=== PATIENT | female | born 1980 | race Caucasian/White ===

== ENCOUNTER 2023-03-09 08:53 | Outpatient (OUT) | payer OTHER, SELFPAY ==
[2023-03-09 09:22] LABS: Basophils Percent Auto 0.3 % (0.2-2.0); Eosinophils Absolute Auto 0.2 10^3/uL (0.0-0.7); Eosinophils Percent Auto 2.3 % (0.9-7.0); Hemoglobin 14.1 g/dL (12.0-16.0); Immature Granulocytes Abs Auto 0.03 10^3/uL (0.00-0.03); Immature Granulocytes Pct Auto 0.4 % (0.0-0.5); Lymphocytes Absolute Auto 1.3 10^3/uL (1.2-3.8); Mean Corpuscular HGB Conc 34.4 g/dL (29.9-35.2); Mean Corpuscular Hemoglobin 29.9 pg (26.7-34.0); Mean Platelet Volume 9.4 fL (9.5-13.5); Monocytes Absolute Auto 0.5 10^3/uL (0.3-0.8); Neutrophils Absolute Auto 5.2 10^3/uL (1.4-6.5); Platelet Count 227 10^3/uL (150-450); Red Blood Count 4.71 10^6/uL (4.20-5.40); White Blood Count 7.3 10^3/uL (4.0-11.0)
[2023-03-09 09:35] LABS: Anion Gap 8.8; BUN Creatinine Ratio 11.4; Calcium 9.2 mg/dL (8.5-10.1); Carbon Dioxide 30.1 mmol/L (21.0-32.0); Chloride 102 mmol/L (98-107); Chol HDL Ratio 5.1; Cholesterol 197 mg/dL (<=200); Estimated GFR (African America >60 (>=60); Estimated GFR (Non-African Ame >60 (>=60); Glucose 85 mg/dL (74-106); HDL Cholesterol 39 mg/dL (40-60); Potassium 3.9 mmol/L (3.5-5.1); Sodium 137 mmol/L (136-145); Triglycerides 219 mg/dL (<=150); VLDL CHOLESTEROL 43.8 mg/dL
== END 2023-03-09 08:54 | disposition home or self-care (01) ==
LOC: LAB 08:56
PROVIDERS: PCP Family Medicine; Visit Provider Family Medicine
DX: Z00.00 Encounter for general adult medical examination without abnormal findings (principal)
CPT/HCPCS: 36415; 80048; 80061; 85025

== ENCOUNTER 2024-03-20 07:40 | Outpatient (OUT) | payer OTHER, SELFPAY ==
[2024-03-20 08:02] LABS: Basophils Percent Auto 0.2 % (0.2-2.0); Eosinophils Absolute Auto 0.2 10^3/uL (0.0-0.7); Eosinophils Percent Auto 3.3 % (0.9-7.0); Hematocrit 37.9 % (36.0-48.0); Hemoglobin 13.3 g/dL (12.0-16.0); Immature Granulocytes Abs Auto 0.01 10^3/uL (0.00-0.03); Immature Granulocytes Pct Auto 0.2 % (0.0-0.5); Lymphocytes Absolute Auto 1.5 10^3/uL (1.2-3.8); Lymphocytes Percent Auto 26.4 % (20.5-60.0); Mean Corpuscular HGB Conc 35.1 g/dL (29.9-35.2); Mean Corpuscular Hemoglobin 30.7 pg (26.7-34.0); Mean Corpuscular Volume 87.5 fL (81.0-99.0); Mean Platelet Volume 9.3 fL (9.5-13.5); Monocytes Absolute Auto 0.4 10^3/uL (0.3-0.8); Monocytes Percent Auto 6.9 % (1.7-12.0); Neutrophils Absolute Auto 3.5 10^3/uL (1.4-6.5); Platelet Count 212 10^3/uL (150-450); Red Blood Count 4.33 10^6/uL (4.20-5.40); Red Cell Distribution Width 11.9 % (11.0-15.0); White Blood Count 5.5 10^3/uL (4.0-11.0)
[2024-03-20 08:54] LABS: Anion Gap 10.1; BUN Creatinine Ratio 11.2; Carbon Dioxide 29.5 mmol/L (21.0-32.0); Chloride 103 mmol/L (98-107); Chol HDL Ratio 4.3; Cholesterol 194 mg/dL (<=200); Estimated GFR (African America >60 (>=60); Estimated GFR (Non-African Ame >60 (>=60); Glucose 89 mg/dL (74-106); HDL Cholesterol 45 mg/dL (40-60); Potassium 3.6 mmol/L (3.5-5.1); Sodium 139 mmol/L (136-145); Triglycerides 151 mg/dL (<=150); VLDL CHOLESTEROL 30.2 mg/dL
== END 2024-03-20 07:41 | disposition home or self-care (01) ==
PROVIDERS: PCP Family Medicine; Visit Provider Family Medicine
DX: Z00.00 Encounter for general adult medical examination without abnormal findings (principal)
CPT/HCPCS: 36415; 80048; 80061; 85025

== ENCOUNTER 2025-03-13 07:50 | Outpatient (OUT) | payer OTHER, SELFPAY ==
--- OUTSIDE RECORDS SUMMARY | 2025-03-13 07:54 | XMS_ITS | CCD ---
Author Organization [facility] Care Team Providers Care Veneer Drier Feeder Name Role Phone DR MELINDA FREEDMAN Admitting Unavailable CHRIS, DR MELINDA Salvador Attending Unavailable CHRIS, DR MELINDA Salvador Consulting Unavailable CHRIS, DR MELINDA Salvador Primary Care Unavailable CHRIS, DR MELINDA Salvador Admitting Unavailable CHRIS, DR MELINDA Salvador Attending Unavailable CHRIS, DR MELINDA Salvador Consulting Unavailable Melinda Freedman Melinda Freedman Attending Unavailable Melinda Freedman Primary Care Unavailable Melinda Freedman Admitting Unavailable MD Melinda Freedman Primary Care Provider MD Melinda Freedman Attending Provider Melinda Freedman MD Primary Care Provider Melinda Freedman MD Attending Provider Allergies Allergy Classification Reported Allergen(s) Allergy Type Date of Onset Reaction(s) Facility (5 sources) Amoxicillin Drug Allergy 03-04-20 24 [facility] (2 sources) Pseudoephedrine Drug Allergy 07-17-19 14 Unknown [facility] Other (3 sources) 12 Hour Decongestant Allergy to substance 03-04-20 24 [facility] Comment on above: Onset Date: 07/17/19 14 Medications Completed/Discontinued Medications Medication Drug Class(es) Dates Sig (Normalized) Sig (Original) Brompheniramine / Pseudoephedrine (1 source) alpha-Adrenergic Agonist Start: 12-03-2016 take 10 mL by mouth every six hours as needed Bromfed DM 30-2-10 MG/5ML 10 ml as needed Orally every 6 hrs Nov, Not-Taking clarithromycin 500 mg oral tablet (1 source) Macrolide Antimicrobial Start: 07-09-2016 take 1 tablet by mouth every twelve hours Biaxin 500 MG 1 tablet Orally every 12 hrs for 10 day(s) Jun, Not-Taking fluticasone propionate 0.05 mg/actuat metered dose nasal spray (1 source) Corticosteroid Start: 12-03-2016 take 1 spray(s) nasal route once daily Fluticasone Propionate 50 MCG/ACT 1 spray in each nostril Nasally Once a day for 21 days Nov, Not-Taking sulfamethoxazole 800 mg / trimethoprim 160 mg oral tablet (1 source) Dihydrofolate Reductase Inhibitor Antibacterial, Sulfonamide Antimicrobial Start: 12-03-2016 take 1 tablet by mouth every twelve hours Bactrim DS 800-160 MG 1 tablet Orally Twice a day for 10 day(s) Nov, Not-Taking Problems Problem Classification Problem Date Documented Date Episodic/Chronic Menopausal disorders (2 sources) Perimenopausal state; Translations: [Menopausal and female climacteric states] 03-10-2025 Chronic Other lower respiratory disease (2 sources) Rib pain; Translations: [Pleurodynia] 03-10-2025 Episodic Other nutritional; endocrine; and metabolic disorders (2 sources) Obese class II; Translations: [Body mass index (BMI) 35.0-35.9, adult] Chronic Other screening for suspected conditions (not mental disorders or infectious disease) (7 sources) Patient encounter status; Translations: [Encounter for screening mammogram for malignant neoplasm of breast] Onset: 03-27-2024 03-04-2024 Episodic Results Test Name Value Interpretation Reference Range Facility MM screening mammo BI w/CADo n 03-27-2024 MM screening mammo BI w/CAD [facility] [place] [address] Mammography Report Signed Patient: Ana Luisa Gottlieb MR#: [id number] : 1980 Acct:[id number] Age/Sex: 43 / F ADM Date: 03/27/24 Loc: [place] Room: Type: [facility] Attending Dr: Melinda Freedman MD Copies to: Melinda Freedman MD Ordering Provider: Melinda Freedman MD Date of Service: 03/27/24 MM/MM screening mammo BI w/CAD: Z12.31 - Encounter for screening mammogram for malignant ... CLINICAL DATA: Screening for malignancy. BILATERAL SCREENING MAMMOGRAMS - FULL FIELD DIGITAL WITH TOMOSYNTHESIS AND CAD Tomosynthesis craniocaudal and mediolateral oblique views of both breasts were obtained using low- dose digital technique. Comparison is made to prior studies from 05/14/2016. This examination was reviewed with the aid of CAD. There are scattered fibroglandular densities. Benign-appearing lymph nodes are noted along the chest wall. There are a few punctate benign-appearing calcifications. There are no dominant masses, typically malignant calcifications or architectural distortion. There has been no significant interval change. MM/MM screening mammo BI w/CAD IMPRESSION: NO MAMMOGRAPHIC EVIDENCE OF MALIGNANCY. ROUTINE FOLLOW-UP IS RECOMMENDED IN ONE YEAR. RESULT CODE: 2 Benign Findings(s) DENSITY CODE: 2 (approximately 25-50% glandular) FOLLOW UP: 1YR The false-negative rate of mammography is approximately 10-percent. Management of a palpable abnormality must be based on clinical grounds. Patient was entered into a reminder system with a target due date for the next mammogram. Impression dictated by: Allen Gray M.D.03/27/2024 4:01 PM Dictation Location: [facility] Transcribed By: [facility] 03/27/24 1601 Dictated By: Allen Gray II, MD 03/27/24 1557 Signed By: 03/27/24 1601 Normal [facility] Basophils Auto (Bld) [#/Vol] on 03-20-2024 Basophils (Bld) [#/Vol] 0.0 10 3/uL 0.0-0.1 [facility] Basophils/100 WBC Auto (Bld) on 03-20-2024 Basophils/100 WBC (Bld) 0.2 % 0.2-2.0 [facility] Cholesterol in LDL Calc [Mas s/Vol]on 03-20-2024 Cholesterol in LDL [Mass/Vol] 119.0 mg/dL [facility] Comment on above: <100 mg/dl [id number] 0-129 mg/dl NEAR OR ABOVE [id number] mg/dl BORDERLINE [id number] mg/dl HIGH>190 mg/dl VERY HIGH Cholesterol in VLDL Calc [Ma ss/Vol]on 03-20-2024 Cholesterol in VLDL [Mass/Vol] 30.2 mg/dL [facility] Eosinophils/100 WBC Auto (Bl d)on 03-20-2024 Eosinophils/100 WBC (Bld) 3.3 % 0.9-7.0 [facility] Erythrocyte distribution wid th Auto (RBC) [Ratio]on 03-20-2024 Erythrocyte distribution width (RBC) [Ratio] 11.9 % 11.0-15.0 [facility] Estimated glomerular filtrat ion rate (GFR) non- Americanon 03-20-2024 GFR/1.73 sq M.predicted among non-blacks MDRD (S/P/Bld) [Vol rate/Area] mL/min/{1.73_m2} >=60 [facility] Hematocrit Auto (Bld) [Volum e fraction]on 03-20-2024 Hematocrit (Bld) [Volume fraction] 37.9 % 36.0-48.0 [facility] Hemoglobin [Mass/volume] in Bloodon 03-20-2024 Hemoglobin (Bld) [Mass/Vol] 13.3 g/dL 12.0-16.0 [facility] Laboratory - Chemistry and C hemistry - challengeon 03-20-2024 Calcium [Mass/Vol] 9.0 mg/dL 8.5-10.1 [facility] Chloride [Moles/Vol] 103 mmol/L 98-107 [facility] Cholesterol [Mass/Vol] 194 mg/dL <=200 [facility] Cholesterol in HDL [Mass/Vol] 45 mg/dL 40-60 [facility] Comment on above: > or =60 mg/dl - LOW CARDIOVASCULAR RISK<40 mg/dl - HIGH CARDIOVASCULAR RISK CO2 [Moles/Vol] 29.5 mmol/L 21.0-32.0 [facility] Creatinine [Mass/Vol] 0.80 mg/dL 0.55-1.02 [facility] GFR/1.73 sq M.predicted MDRD (S/P/Bld) [Vol rate/Area] mL/min/{1.73_m2} >=60 [facility] Glucose [Mass/Vol] 89 mg/dL 74-106 [facility] Potassium [Moles/Vol] 3.6 mmol/L 3.5-5.1 [facility] Sodium [Moles/Vol] 139 mmol/L 136-145 [facility] Triglyceride [Mass/Vol] 151 mg/dL High <=150 [facility] Urea nitrogen [Mass/Vol] 9.0 mg/dL 7.0-18.0 [facility] Urea nitrogen/Creatinine [Mass ratio] 11.2 mg/mg [facility] - Hematology and Cell countson 03-20-2024 Immature granulocytes/100 WBC (Bld) 0.2 % 0.0-0.5 [facility] Leukocytes [#/volume] correc jacinto for nucleated erythrocytes in Blood by Automated counon 03-20-2024 WBC corrected for nucl RBC Auto (Bld) [#/Vol] 5.5 10 3/uL 4.0-11.0 [facility] Lymphocytes Auto (Bld) [#/Vo l]on 03-20-2024 Lymphocytes (Bld) [#/Vol] 1.5 10 3/uL 1.2-3.8 [facility] Lymphocytes/100 WBC Auto (Bl d)on 03-20-2024 Lymphocytes/100 WBC (Bld) 26.4 % 20.5-60.0 [facility] MCH Auto (RBC) [Entitic mass ]on 03-20-2024 MCH (RBC) [Entitic mass] 30.7 pg 26.7-34.0 [facility] MCHC Auto (RBC) [Mass/Vol]on 03-20-2024 MCHC (RBC) [Mass/Vol] 35.1 g/dL 29.9-35.2 [facility] MCV Auto (RBC) [Entitic vol] on 03-20-2024 MCV (RBC) [Entitic vol] 87.5 fL 81.0-99.0 [facility] Monocytes Auto (Bld) [#/Vol] on 03-20-2024 Monocytes (Bld) [#/Vol] 0.4 10 3/uL 0.3-0.8 [facility] Monocytes/100 WBC Auto (Bld) on 03-20-2024 Monocytes/100 WBC (Bld) 6.9 % 1.7-12.0 [facility] Neutrophils Auto (Bld) [#/Vo l]on 03-20-2024 Neutrophils (Bld) [#/Vol] 3.5 10 3/uL 1.4-6.5 [facility] Neutrophils/100 WBC Auto (Bl d)on 03-20-2024 Neutrophils/100 WBC (Bld) 63.0 % 43.0-75.0 [facility] No Panel Informationon 03-20 Eosinophils # (Auto) 0.2 10 3/uL 0.0-0.7 [facility] Immature Granulocyte # (Auto) 0.01 10 3/uL 0.00-0.03 [facility] Platelet mean volume Auto (B ld) [Entitic vol]on 03-20-2024 Platelet mean volume (Bld) [Entitic vol] 9.3 fL Low 9.5-13.5 [facility] Platelets Auto (Bld) [#/Vol] on 03-20-2024 Platelets (Bld) [#/Vol] 212 10 3/uL 150-450 [facility] RBC Auto (Bld) [#/Vol]on RBC (Bld) [#/Vol] 4.33 10 6/uL 4.20-5.40 [facility] Serum or plasma anion gap de terminationon 03-20-2024 Anion gap [Moles/Vol] 10.1 mmol/L [facility] Serum or plasma total choles terol/high density lipoprotein (HDL) cholesterol mass jerry 03-20-2024 Cholesterol.total/Cho lesterol in HDL [Mass ratio] 4.3 {ratio} [facility] Comment on above: 3.3 - 4.4 LOW RISK4. 4 - 7.1 AVERAGE RISK7.1 - 11.0 MODERATE RISK>11.0 HIGH RISK LIPID PROFILEon 02-17-2022 CHOL-HDL RATIO NORM SEE BELOW Normal [facility] Comment on above: Result Comment: 3.3 - 4.4 LOW RISK 4.4 - 7.1 AVERAGE RISK 7.1 - 11.0 MODERATE RISK >11.0 HIGH RISK Performed By: #### L IPID, TSH, BMP #### [facility] [address] [address] [address] Ruby Anthony Cholesterol [Mass/Vol] 194 mg/dL Normal <=200 [facility] Comment on above: Performed By: #### L IPID, TSH, BMP #### [facility] [address] [address] [address] Ruby Anthony Cholesterol in HDL [Mass/Vol] 44 mg/dL Normal 40-60 [facility] Comment on above: Performed By: #### L IPID, TSH, BMP #### [facility] [address] [address] [address] Ruby Anthony Cholesterol in LDL [Mass/Vol] 119.8 mg/dL Normal [facility] Comment on above: Performed By: #### L IPID, TSH, BMP #### [facility] [address] [address] [address] Ruby Anthony Cholesterol.total/Cho lesterol in HDL [Mass ratio] 4.4 {ratio} Normal [facility] Comment on above: Performed By: #### L IPID, TSH, BMP #### [facility] [address] [address] [address] Ruby Anthony HDL NORMAL > or = 60 mg/dl - LOW CARDIOVASCULAR RISK <40 mg/dl - HIGH CARDIOVASCULAR RISK Normal [facility] Comment on above: Performed By: #### L IPID, TSH, BMP #### [facility] [address] [address] [address] Ruby Anthony LDL CALC NORMAL SEE BELOW Normal [facility] Comment on above: Result Comment: <100 mg/dl OPTIMAL 100 - 129 mg/dl NEAR OR ABOVE OPTIMAL 130 - 159 mg/dl BORDERLINE HIGH 160 - 189 mg/dl HIGH >190 mg/dl VERY HIGH Performed By: #### L IPID, TSH, BMP #### [facility] [address] [address] [address] Ruby Anthony Triglyceride [Mass/Vol] 151 mg/dL Critically high <=150 [facility] Comment on above: Performed By: #### L IPID, TSH, BMP #### [facility] [address] [address] [address] Ruby Anthony VLDL CALC 30.2 mg/dL Normal [facility] Comment on above: Performed By: #### L IPID, TSH, BMP #### [facility] [address] [place] [address] Dr. Ruby Anthony PROF CHEM 8 (BAS METB)on Anion gap [Moles/Vol] 9.8 mmol/L Normal [facility] Comment on above: Performed By: #### L IPID, TSH, BMP #### [facility] [address] [place] [address] Dr. Ruby Anthony Calcium [Mass/Vol] 8.5 mg/dL Normal 8.5-10.1 [facility] Comment on above: Performed By: #### L IPID, TSH, BMP #### [facility] [address] [place] [address] Dr. Ruby Anthony Chloride [Moles/Vol] 102 mmol/L Normal 98-107 [facility] Comment on above: Performed By: #### L IPID, TSH, BMP #### [facility] [address] [place] [address] Dr. Ruby Anthony CO2 [Moles/Vol] 30.9 mmol/L Normal 21.0-32.0 [facility] Comment on above: Performed By: #### L IPID, TSH, BMP #### [facility] [address] [place] [address] Dr. Ruby Anthony Creatinine [Mass/Vol] 0.77 mg/dL Normal 0.55-1.02 [facility] Comment on above: Performed By: #### L IPID, TSH, BMP #### [facility] [address] [place] [address] Dr. Ruby Anthony EGFR-AF SLOVAK >60 Normal >=60 [facility] Comment on above: Performed By: #### L IPID, TSH, BMP #### [facility] [address] [place] [address] Dr. Ruby Anthony EGFR-NON AF SLOVAK >60 Normal >=60 [facility] Comment on above: Performed By: #### L IPID, TSH, BMP #### [facility] [address] [place] [address] Dr. Ruby Anthony Glucose [Mass/Vol] 88 mg/dL Normal 74-106 [facility] Comment on above: Performed By: #### L IPID, TSH, BMP #### [facility] [address] [address] [address] Ruby Anthony Potassium [Moles/Vol] 3.7 mmol/L Normal 3.5-5.1 [facility] Comment on above: Performed By: #### L IPID, TSH, BMP #### [facility] [address] [address] [address] Ruby Anthony Sodium [Moles/Vol] 139 mmol/L Normal 136-145 [facility] Comment on above: Performed By: #### L IPID, TSH, BMP #### [facility] [address] [place] [address] Dr. Ruby Anthony Urea nitrogen [Mass/Vol] 9.0 mg/dL Normal 7.0-18.0 [facility] Comment on above: Performed By: #### L IPID, TSH, BMP #### [facility] [address] [place] [address] Dr. Ruby Anthony Urea nitrogen/Creatinine [Mass ratio] 11.7 mg/mg Normal [facility] Comment on above: Performed By: #### L IPID, TSH, BMP #### [facility] [address] [place] [address] Dr. Ruby Anthony TSHon 02-17-2022 TSH 1.588 uIU/mL Normal 0.358-3.740 [facility] Comment on above: Performed By: #### L IPID, TSH, BMP #### [facility] [address] [place] [address] Dr. Ruby Anthony LIPID PROFILEon 03-15-2021 CHOL-HDL RATIO NORM SEE BELOW Normal [facility] Comment on above: Result Comment: 3.3 - 4.4 LOW RISK 4.4 - 7.1 AVERAGE RISK 7.1 - 11.0 MODERATE RISK >11.0 HIGH RISK Performed By: #### L IPID, BMP #### [facility] [address] [place] [address] Dr. Ruby Anthony Cholesterol [Mass/Vol] 176 mg/dL Normal <=200 [facility] Comment on above: Performed By: #### L IPID, BMP #### [facility] [address] [address] [address] Ruby Anthony Cholesterol in HDL [Mass/Vol] 37 mg/dL Normal [facility] Comment on above: Performed By: #### L IPID, BMP #### [facility] [address] [address] [address] Ruby Anthony Cholesterol in LDL [Mass/Vol] 102.2 mg/dL Normal [facility] Comment on above: Performed By: #### L IPID, BMP #### [facility] [address] [place] [address] Dr. Ruby Anthony Cholesterol.total/Cho lesterol in HDL [Mass ratio] 4.8 {ratio} Normal [facility] Comment on above: Performed By: #### L IPID, BMP #### [facility] [address] [address] [address] Ruby Anthony HDL NORMAL > or = 60 mg/dl - LOW CARDIOVASCULAR RISK <40 mg/dl - HIGH CARDIOVASCULAR RISK Normal [facility] Comment on above: Performed By: #### L IPID, BMP #### [facility] [address] [place] [address] Dr. Ruby Anthony LDL CALC NORMAL SEE BELOW Normal [facility] Comment on above: Result Comment: <100 mg/dl OPTIMAL 100 - 129 mg/dl NEAR OR ABOVE OPTIMAL 130 - 159 mg/dl BORDERLINE HIGH 160 - 189 mg/dl HIGH >190 mg/dl VERY HIGH Performed By: #### L IPID, BMP #### [facility] [address] [address] [address] Ruby Anthony Triglyceride [Mass/Vol] 184 mg/dL Critically high <=150 [facility] Comment on above: Performed By: #### L IPID, BMP #### [facility] [address] [place] [address] Dr. Ruby Anthony VLDL CALC 36.8 mg/dL Normal [facility] Comment on above: Performed By: #### L IPID, BMP #### [facility] [address] [place] [address] Dr. Ruby Anthony PROF CHEM 8 (BAS METB)on Anion gap [Moles/Vol] 10.1 mmol/L Normal [facility] Comment on above: Performed By: #### L IPID, BMP #### [facility] [address] [place] [address] Dr. Ruby Anthony Calcium [Mass/Vol] 9.2 mg/dL Normal 8.4-10.2 [facility] Comment on above: Performed By: #### L IPID, BMP #### [facility] [address] [place] [address] Dr. Ruby Anthony Chloride [Moles/Vol] 103 mmol/L Normal 98-107 [facility] Comment on above: Performed By: #### L IPID, BMP #### [facility] [address] [place] [address] Dr. Ruby Anthony CO2 [Moles/Vol] 30.2 mmol/L Critically high 22.0-30.0 [facility] Comment on above: Performed By: #### L IPID, BMP #### [facility] [address] [place] [address] Dr. Ruby Anthony Creatinine [Mass/Vol] 0.93 mg/dL Normal 0.52-1.04 [facility] Comment on above: Performed By: #### L IPID, BMP #### [facility] [address] [place] [address] Dr. Ruby Anthony EGFR-AF SLOVAK >60 Normal >=60 [facility] Comment on above: Performed By: #### L IPID, BMP #### [facility] [address] [place] [address] Dr. Ruby Anthony EGFR-NON AF SLOVAK >60 Normal >=60 [facility] Comment on above: Performed By: #### L IPID, BMP #### [facility] [address] [place] [address] Dr. Ruby Anthnoy Glucose [Mass/Vol] 97 mg/dL Normal 74-106 [facility] Comment on above: Performed By: #### L IPID, BMP #### [facility] [address] [address] [address] Ruby Anthony Potassium [Moles/Vol] 3.3 mmol/L Critically low 3.4-5.0 [facility] Comment on above: Performed By: #### L IPID, BMP #### [facility] [address] [address] [address] Ruby Anthony Sodium [Moles/Vol] 140 mmol/L Normal 137-145 [facility] Comment on above: Performed By: #### L IPID, BMP #### [facility] [address] [place] [address] Dr. Ruby Anthony Urea nitrogen [Mass/Vol] 5.0 mg/dL Critically low 7.0-17.0 [facility] Comment on above: Performed By: #### L IPID, BMP #### [facility] [address] [place] [address] Dr. Ruby Anthony Urea nitrogen/Creatinine [Mass ratio] 5.4 mg/mg Normal [facility] Comment on above: Performed By: #### L IPID, BMP #### [facility] [address] [place] [address] Dr. Ruby Anthony Vital Signs Date Time Vital Sign Value Performing Clinician Facility 03-10-2025 14: Body height 15.24 cm Melinda Freedman MD Work Phone: [facility] 03-10-2025 14:11040 Body mass index (BMI) [Ratio] 4471.9 kg/m2 Melinda Freedman MD Work Phone: [facility] 03-10-2025 14:040 Body weight 103.87 kg Melinda Freedman MD Work Phone: [facility] 03-10-2025 14:11040 Diastolic blood pressure 83 mm[Hg] Melinda Freedman MD Work Phone: [facility] 03-10-2025 14:11040 Heart rate 94 /min Melinda Freedman MD Work Phone: [facility] 03-10-2025 14:11-0400 Systolic blood pressure 147 mm[Hg] Melinda Freedman MD Work Phone: [facility] 03-04-2024 14:18-0400 Body height 168.91 cm [facility] 03-04-2024 14:18-0400 Body mass index (BMI) [Ratio] 34.3 kg/m2 [facility] 03-04-2024 14:18-0400 Body weight 97.97 kg [facility] 03-04-2024 14:18-0400 Diastolic blood pressure 82 mm[Hg] [facility] 03-04-2024 14:18-0400 Heart rate 83 /min [facility] 03-04-2024 14:18-0400 Systolic blood pressure 136 mm[Hg] [facility] 03-08-2023 15:30-0400 Body height 168.91 cm Melinda Freedman Other [facility] [employer] Other 03-08-2023 15:30-0400 Body mass index (BMI) [Ratio] 36.98 kg/m2 Melinda Freedman Other [facility] [employer] Other 03-08-2023 15:30-0400 Body weight 105.51 kg Melinda Freedman Other [facility] Other 03-08-2023 15:30-0400 Diastolic blood pressure 84 mm[Hg] Melinda Freedman Other [facility] [employer] Other 03-08-2023 15:30-0400 Respiratory rate 12 /min Melinda Freedman Other [facility] Other 03-08-2023 15:30-0400 Systolic blood pressure 132 mm[Hg] Melinda Freedman Other [facility] Other Encounters Encounter Date Encounter Type Care Provider Facility Start: 03-10-2025 End: 03-10-2025 ambulatory Melinda Freedman MD Work Phone: [facility] Work Phone: Start: 03-10-2025 End: 03-10-2025 Patient encounter procedure Melinda Freedman MD -[facility] Work Phone: Start: 03-10-2025 End: 03-10-2025 Patient encounter status Melinda Freedman MD [facility] Start: 03-27-2024 End: 03-27-2024 Patient encounter procedure MD Melinda Freedman Work Phone: [facility] Work Phone: Start: 03-27-2024 End: 03-27-2024 ambulatory Melinda Freedman Facility:[facility] Start: 03-20-2024 Non-patient / Non-visit MD Cee Freedman Work Phone: [facility] [employer] Work Phone: Start: 03-04-2024 Patient encounter status [facility] Start: 03-04-2024 End: 03-04-2024 ambulatory [facility] Work Phone: Start: 03-04-2024 End: 03-04-2024 Encounter for general adult medical examination without abnormal findings [facility] Start: 03-04-2024 End: 03-04-2024 Patient encounter procedure [facility] Work Phone: Start: 03-13-2023 End: 03-13-2023 ambulatory Melinda Freedman Other [facility] Other Start: 03-13-2023 Telephone encounter Melinda Freedman [facility] Start: 03-08-2023 End: 03-08-2023 ambulatory Melinda Freedman Other [facility] Other Start: 03-08-2023 Encounter for genera l adult medical examination without abnormal findings Melinda Freedman [facility] Start: 03-08-2023 Periodic preventive med est patient 40-64yrs Melinda Freedman [facility] Start: 02-19-2022 Encounter for genera l adult medical examination without abnormal findings DR MELINDA FREEDMAN [facility] Start: 02-17-2022 End: 02-18-[address] MELINDA FREEDMAN Facility:[facility] Start: 02-17-2022 End: 02-18-2022 Encounter for general adult medical examination without abnormal findings DR MELINDA FREEDMAN Facility:[facility] Start: 03-15-2021 End: 03-16-[address] MELINDA FREEDMAN Facility:[facility] Procedures Date Procedure Procedure Detail Performing Clinician Start: 03-27-2024 Screening mammograph y of bilateral breasts MD Melinda Freedman Work Phone: Plan of Treatment Date Care Activity Detail Author Comprehensive metabo lic 1999 panel - Serum or Plasma [facility] enter Estrogen [Mass/volum e] in Serum or Plasma [facility] enter MG Breast - bilateral Screening [facility] MG Breast - bilateral Screening [facility] XR Unspecified body region Views [facility] Payers Date Payer Category Payer Unknown [id number] 1980 Unknown [id number] 1959 Unknown [id number] Medicaid [place] [employer] [id number] Private Health Insurance [id number] Social History Date Type Detail Facility Unknown if ever smoked [facility] Other Sex Assigned At Sex Assigned At [facility] Other Start: 03-08-2023 Tobacco smoking status NHIS Never smoked tobacco (finding) [facility] Start: 1980 Sex Assigned At Female [facility] Sex Female (finding) [facility] NEGATED: Highlighted row [facility] NEGATED: Highlighted row N [facility] Evaluation note 03-08-2023 Note Date & Type Note Facility 03-08-2023 Evaluation note Encounter Date Diagnosis Assessment Notes Feb, Well adult exam (ICD-10 - Z00.00) We have discussed the necessity of following up with PCP regularly as well as specialists, as needed. Discussed F/U with dentistry and optometry at least yearly. Discussed all preventative measures/ cancer screenings as applicable to this patient. Emphasized the importance of a reduced fat, low carb diet to promote heart health and controlled blood sugars. Reviewed social history and ensured patient is safe within the home today. Pt denies any abuse of alcohol, nicotine, caffeine or recreational drugs. I have ensured patient is of stable mental and physical health today. We have discussed appropriate F/U schedule as well as blood work and vaccinations that apply. All questions answered and patient is sent home pleased, without concerns. [facility] Other Evaluation note Note Date & Type Note Facility Evaluation note No Information [facility] Other Evaluation note Note Date & Type Note Facility Evaluation note Diagnosis Onset Date Screening mammogram for breast cancer acute Wellness examination acute [facility] Work Phone: Evaluation note Note Date & Type Note Facility Evaluation note Diagnosis Onset Date Resolution Perimenopausal acute March 10, 2025 1:40pm Rib pain on left side acute Sep tember 2024 1:40pm Screening mammogram for breast cancer acute March 10, 2025 1:40pm Wellness examination acute Sept emb2024 1:40pm [facility] Work Phone: History general Narrative - Reported Note Date & Type Note Facility History general Narrative - Reported Type Medical History BMI 35.0-35.9,adult Surgical History C section x 2 Hospitalization History see surgical hx [facility] Other Reason for referral (narrative) Note Date & Type Note Facility Reason for referral (narrative) No reason for referral information available [facility] Work Phone: Summary Purpose Family History Relationship Condition Age at Onset Recorded Date/T isabel mother Malignant neoplasm Unknown Advance Directives Advance Directive Response Recorded Date/ Time Advance Directives No February 2:07pm Chief Complaint and Reason for Visit Chief Complaint wellness Reason for Visit Screening mammogram for breast cancer Wellness examination Chief Complaint wellness Z12.31 Reason for Visit Screening mammogram for breast cancer Wellness examination Chief Complaint Admit Date Wellness, Physical March 10, 2025 1:40pm Reason for Visit Admit Date Perimenopausal March 10, 2025 1:40pm Rib pain on left side March 10 1:40pm Screening mammogram for breast cancer Se ptember 2024 1:40pm Wellness examination March 10 1:40pm Additional Source Comments INFORMATION SOURCE (unrecogn ized section and content) DATE CREATED AUTHOR 02/19/2022 [facility] DATE CREATED AUTHOR AUTHOR'S ORGANIZ ATION 03/29/2024 [facility] REASON FOR VISIT (unrecogniz ed section and content) [facility] Teams (unrecognized sec tion and content) Team Status: Active Member Role Status Dates Melinda Freedman MD Primary Care Provider Active Team Status: Inactive Member Role Status Dates Melinda Freedman MD Primary Care Provide r, Attending Provider Active Start: March 04, 2024 End: March 04, 2024 Team Status: Active Member Role Status Cuca Freedman MD Primary Care Provide r, Attending Provider Active Start: March 20, 2024 Team Status: Inactive Member Role Status Cuca Freedman MD Primary Care Provide r, Attending Provider Active Start: March 27, 2024 End: March 27, 2024 Team Status: Inactive Member Role Status Dates Melinda Freedman MD Primary Care Provider Active Start: March 10, 2025 End: March 10, 2025 Melinda Freedman MD Attending Provider Active St art: March 10, 2025 End: March 10, 2025 Goals (unrecognized section and content) Goals may be documented in a n alternate section FOR RECORDS PERTAINING TO PATIENTS WHO ARE OR HAVE BEEN ENROLLED IN A CHEMICAL DEPENDENCY/SUBSTANCEABUSE PROGRAM, SOME INFORMATION MAY BE OMITTED. This clinical summary was aggregated from multiple sources. Caution should be exercised in using it in the provision of clinical care. This summary normalizes information from multiple sources, and as a consequence, information in this document may materially change the coding, format and clinical context of patient data. In addition, data may be omitted in some cases. CLINICAL DECISIONS SHOULD BE BASED ON THE PRIMARY CLINICAL RECORDS. [facility] [employer] [facility] provides no warranty or guarantee of the accuracy or completeness of information in this document.
--- NOTE | 2025-03-13 08:02 | XR_ITS ---
The [address] [address] Patient Name: RAGHAVENDRA LAWRENCE MRN: [id number] date: 1980 Sex: F Assigned Patient Location: LAB Current Patient Location: LAB Accession/Order Number: [id number] Exam Date: 03/13/2025 08:12 Report Date: 03/13/2025 08:44 At the request of: JACEY PEREZ MD Procedure: XR ribs LT min 3V w CXR1V PA CHEST WITH LEFT RIBS: CLINICAL HISTORY: Rib pain on left side for approximately 6 months, greatest under the breast. No reported injury. COMPARISON: None The chest film shows no infiltrate, effusion or pneumothorax. The cardiac, hilar and mediastinal silhouettes are within normal limits. No vascular congestion is seen. There is endplate spurring at the spine. Patient has nipple piercings. AP and both oblique views of the left ribs show no acute displaced or healing fractures. No bony destruction is seen. XR/XR ribs LT min 3V w CXR1V IMPRESSION: NO ACUTE FINDINGS. Impression dictated by: Angi Esparza M.D. 03/13/2025 8:44 AM Dictation Location: [place] [address] Electronically authenticated by: [id number] Y Date: 03/13/2025 08:44
[2025-03-13 08:07] LABS: Hematocrit 37.9 % (36.0-48.0); Hemoglobin 13.3 g/dL (12.0-16.0); Immature Granulocytes Abs Auto 0.01 10^3/uL (0.00-0.03); Immature Granulocytes Pct Auto 0.2 % (0.0-0.5); Lymphocytes Absolute Auto 1.4 10^3/uL (1.2-3.8); Mean Corpuscular HGB Conc 35.1 g/dL (29.9-35.2); Mean Corpuscular Hemoglobin 29.8 pg (26.7-34.0); Mean Corpuscular Volume 84.8 fL (81.0-99.0); Platelet Count 201 10^3/uL (150-450); Red Blood Count 4.47 10^6/uL (4.20-5.40); White Blood Count 6.1 10^3/uL (4.0-11.0)
[2025-03-13 08:35] LABS: Alanine Aminotransferase 21 U/L (14-59); Albumin Globulin Ratio 0.9; Albumin Level 3.7 g/dL (3.4-5.0); Alkaline Phosphatase 68 U/L (46-116); Anion Gap 11.5; Aspartate Amino Transferase 15 U/L (15-37); Blood Urea Nitrogen 9.0 mg/dL (7.0-18.0); Calcium 8.6 mg/dL (8.5-10.1); Carbon Dioxide 30.1 mmol/L (21.0-32.0); Chloride 104 mmol/L (98-107); Cholesterol 218 mg/dL (<=200); Estimated GFR (African America >60 (>=60 mL/min/1.73m^2); Estimated GFR (Non-African Ame >60 (>=60 mL/min/1.73m^2); Globulin 3.9 g/dL; Glucose 93 mg/dL (74-106); HDL Cholesterol 42 mg/dL (40-60); Potassium 3.6 mmol/L (3.5-5.1); Sodium 142 mmol/L (136-145); Total Protein 7.6 g/dL (6.4-8.2); Triglycerides 201 mg/dL (<=150); VLDL CHOLESTEROL 40.2 mg/dL
== END 2025-03-13 07:51 | disposition home or self-care (01) ==
LOC: LAB 07:51
PROVIDERS: PCP Family Medicine; Visit Provider Family Medicine
DX: N95.1 Menopausal and female climacteric states (principal); R07.81 Pleurodynia
CPT/HCPCS: 36415; 71101; 80053; 80061; 85025